=== PATIENT | female | born 1950 | race Caucasian/White ===

== ENCOUNTER 2019-12-13 09:55 | Day surgery (SDC) | payer MEDICARE, OTHER, SELFPAY ==
[2019-12-12 17:17] VITALS: BMI 22.8
[2019-12-13] VITALS (8 sets, daily range): BP systolic 110–137; BP diastolic 64–78; PULSE 81–84; RESP 12–25; TEMP 36.6–37.1; O2SAT 95–100
--- NOTE | 2019-12-13 | SCC_ITS ---
Procedure Done: Open reduction internal fixation right comminuted intra- articular distal radius fracture 144.9 seconds of fluoroscopic guidance, for a cumulative dose of 7.32 mGy, was provided to Dr. Taylor by the radiology department. C-arm images of the LEFT wrist were saved for the patient's permanent record. [facility]
--- NOTE | 2019-12-13 | XR_ITS ---
WS: [id number] INTRAOPERATIVE TECHNIQUE: 5 Spot fluoroscopic images for intraoperative purposes. FLUOROSCOPY TIME: 144.9 seconds CLINICAL INFORMATION: OR PICS COMPARISON: December 12, 2019 FINDINGS: Intraoperative changes plate and screw fixation distal radius. Hardware appears in good position. Uln a styloid avulsion. Soft tissue edema. XR/XR wrist LT 2V 46880 IMPRESSION: Images obtained for intraoperative purposes.
--- NOTE | 2019-12-13 10:47 | ANES.PREANE2 ---
Pre-Anesthetic Assessment Pre-Anesthetic Assessment: Height/Weight: Height 1.57 m Weight 56.699 kg Temp Pulse Resp BP Pulse Ox 98.7 F 81 18 124/64 98 12/13/19 10:37 12/13/19 10:37 12/13/19 10:37 12/13/19 10:37 12/13/19 10:37 Preop Diagnosis: Left distal radius fracture Proposed Procedure: Operation Date: 12/13/19 12:05 Proposed Procedures p ORIF Wrist/Distal Radius Fracture 84704 S52.502A(Left) - Stephani Taylor MD Familial anesthetic complications: None Was Beta Pita taken within 24 hours: N/A Last intake: Intake Last Liquid Date 12/12/19 Last Liquid Time 20:45 Last Solid Date 12/12/19 Last Solid Time 16:00 Social: Social History: No alcohol and No tobacco Exam: Pre-Anes Outpt Exam: alert, oriented x 3, clear to auscultation bilaterally and regular rate & rhythm Airway: Cervical ROM: WNL MP: 1 Dentition: Chipped Additional comments: missing (poor dentition) Pulmonary: Pulmonary: None reported 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
[2019-12-13 10:48] LABS: Add Urine Microscopic? NO
[2019-12-13] MEDS: sodium chloride 0.9% 1,000 ML 30 ML IV (10:53)
[2019-12-13] MEDS: midazolam 1 mg/mL INJ 2 mL 2 MG IVP (11:07)
--- NOTE | 2019-12-13 11:07 | ANES.PROC ---
Anesthesia Procedures Procedure/Date: 12/13/19 Nerve Block ^: Nerve Block 1: Main Anesthesia: general anesthesia Time Out Performed: Yes Consent: requested by attending/covering physician, from patient, risks and benefits reviewed and patient agrees to proceed Nerve block location: axillary (w/ musculocutaneous block) Anesthesia monitors applied: pulse oximetry, BP cuff and oxygen Nerve block position: supine Anesthetic Used: ropivicaine 0.5% and with decadron (4 mg) Amount of anesthesia used (mL): 30 Ultrasound used to: recognize landmarks and visualize and ID brachial plexus Interscalene/Femoral BLK: 2 stimuplex 22 g needle used for position and inplane approach Injection: neg aspiration of heme and paresthesia +/- Patient Tolerated Procedure: well and no complications Complications: none
[2019-12-13 11:11] LABS: Basophils % 0.4 %; Eosinophils # 0.1 10^3/uL (0.0-0.8); Eosinophils % 0.9 %; Hematocrit 35.4 % (37.0-47.0); Hemoglobin 11.7 g/dL (11.5-15.3); Lymphocytes # 0.9 10^3/uL (0.8-4.8); Lymphocytes % 11.5 %; Mean Corpuscular HGB Conc 33.1 g/dL (30.0-36.0); Mean Corpuscular Hemoglobin 30.5 pg (28.0-34.0); Mean Corpuscular Volume 92.2 fL (81-99); Mean Platelet Volume 10.6 fL (7.4-10.4); Monocytes # 0.6 10^3/uL (0.2-0.9); Monocytes % 6.7 %; Neutrophils # 6.6 10^3/uL (1.8-7.7); Neutrophils % 80.3 %; Nucleated Red Blood Cells % 0 %; Platelet Count 182 10^3/cmm (130-400); Red Blood Count 3.84 10^6/uL (4.1-5.3); Red Cell Distribution Width 15.5 % (12.1-15.1); White Blood Count 8.2 10^3/uL (4.0-10.0)
[2019-12-13 11:13] LABS: Bilirubin Urine Neg (NEGATIVE); Blood Urine Neg (Negative); Glucose Urine UA Norm (Normal); Ketones Urine Negative (Negative); Leukocyte Esterase Urine Negative (Negative); Nitrate Urine Negative (Negative); Protein Urine Neg (Negative); Specific Gravity, Urine 1.025 (1.005-1.030); Urine Appearance Clear (CLEAR); Urine Color Yellow (Yellow); Urobilinogen Urine Norm (Negative)
[2019-12-13 11:29] LABS: Alanine Aminotransferase 14 U/L (0-33); Albumin Level 4.8 g/dL (3.5-5.2); Alkaline Phosphatase 77 IU/L (35-105); Anion Gap 14.9 (5-19); Aspartate Amino Transferase 24 U/L (0-32); Blood Urea Nitrogen 12 mg/dL (8-23); Calcium 9.9 mg/dL (8.5-10.5); Carbon Dioxide 29 mmol/L (22-29); Chloride 101 mmol/L (98-107); Globulin 2.8 g/dL (1.3-4.6); Glucose 101 mg/dL (65-115); Osmolality Calculated 288 mOsm/kg (285-295); Potassium 3.9 mmol/L (3.5-5.1); Sodium 141 mmol/L (136-145); Total Protein 7.6 g/dL (6.6-8.7)
--- NOTE | 2019-12-13 12:49 | W.PM.OPSUD ---
Surgery/Procedure H&P Update DATE OF PROCEDURE: December 13, 2019 DATE H&P PERFORMED: 12/12/19 H&P UPDATE INFORMATION: I have reviewed H&P completed within last 30 days, No changes to prior documentation and H[place] [facility] [place] indicated PREOP DIAGNOSIS: Left distal radius fracture PLANNED PROCEDURE: Operation Date: 12/13/19 12:05 Proposed Procedures p ORIF Wrist/Distal Radius Fracture 76645 S52.502A(Left) - Stephani Taylor MD
[2019-12-13] MEDS: ceFAZolin 1,000 mg SDV 1000 MG IRRIGATION (13:39)
--- NOTE | 2019-12-13 14:33 | PM.OP ---
Operative Report Date of procedure: December 13, 2019 Pre-op Diagnosis: Left distal radius fracture Post-op diagnosis: same Post-op Findings: Extremely comminuted intra-articular distal radius fracture with very osteopenic bone Procedure Done: Open reduction internal fixation right comminuted intra-articular distal radius fracture with osteopenic bone utilizing the Falguni extra short narrow volar radius plate Specimens removed/disposition: None Surgeon: Stephani Taylor Retail Merchandising Manager: [facility] OR technicians Anesthesia: General (Intubated) Estimated blood loss (mL): 5 Tourniquet time (min): 60 (At 250 mmHg) IV fluids (mL): 1,000 Urine output (mL): 0 (No Márquez) Complications: None Findings: Severely comminuted distal radius fracture with very osteopenic bone and significant displacement. The fracture was also very unstable. Condition: stable Disposition: PACU (Then discharged to home with family) Brief History: This 69-year-old woman was in her usual state of health when she fell while weeding win. She fell onto her outstretched right upper extremity suffering the above injury. She was seen at [facility] emergency department. A closed reduction was accomplished, but the fracture was found at that time to be exceedingly unstable. She was seen in my office and scheduled for the above procedure today. Procedure: Patient was brought to the operating theater, and after undergoing adequate general anesthesia per endotracheal tube, with pre-op placement of a supraclavicular block, the patient's right upper extremity was prepped and draped in usual fashion utilizing DuraPrep. The patient had a tourniquet placed high on the arm prior to prepping and draping. Following prepping and draping, the arm was exsanguinated and the tourniquet was elevated. Total tourniquet time was 60 minutes at 250 mmHg. Prior to commencement of the surgical procedure, a surgical pause was performed. At the time of the surgical pause, we confirmed the site and side of surgery as well as the patient's identity and preoperative surgical markings. We also confirmed availability of equipment and appropriate preoperative IV antibiotics which was Anceg 2 g. Fluoroscopy was also brought into position so that we could visualize the fracture and hardware throughout the surgical procedure. The fracture was evaluated prior to tourniquet placement. The plate size was also chosen prior to incision utilizing fluoroscopy. Following elevation of the tourniquet as well as the surgical pause, an incision was made along the palmaris longus and continued down onto the volar surface of the radius. Care was taken to avoid injury throughout the surgical procedure to the median nerve as well as to the radial artery. The flexor carpi radialis was retracted medially. We were able to essentially elevate the sheath of the flexor carpi radialis and then I was able to place my finger directly onto the distal radius. For the most part, the patient did her own dissection at the time of his injury. Soft tissues were elevated off the distal radius to allow access to the fracture and also to the volar aspect of the distal radial shaft. Fluoroscopy was used to determine whether or not the reduction was appropriate. We were able to reduce the fracture with some difficulty due to the significant comminution and osteopenia. We then evaluated the plate and chose the Falguni extra narrow short volar plate for the right distal radius. The plate was attached proximally and distally utilizing primarily locking screws with one nonlocking screw. We had excellent fixation and reduction of the fracture. Fluoroscopy was utilized during the procedure. Once the plate was fully attached, we had a near anatomic position to the distal radius and the distal radius was out to length. Being satisfied with position, the area was copiously irrigated. There were no fascial tissues to close, and therefore we closed the subcutaneous tissues with 3-0 interrupted Monocryl. We then placed a subcuticular 4-0 Monocryl suture which was running. This was followed by Nina Gregorioi-Yovanny Fuller. A volar splint was wrapped into position over soft roll and this was wrapped in place with an Anthony wrap. The tourniquet was released after 60 minutes. There were no complications. There were no specimens. Patient was returned to recovery room in a satisfactory condition. She was subsequently discharged home with family. She will follow-up with me as scheduled in her discharge instructions.
--- NOTE | 2019-12-13 14:40 | SUR.PHASEI ---
1439 PATIENT TO PACU AT THIS TIME FROM OR. RR EVEN AND UNLABORED. PLACED ON SIMPLE MASK AT 8L, SPO2 100%. DRESSING INTACT TO LEFT WRIST WITH SLING IN PLACE. CAP REFILL INTACT.
--- NOTE | 2019-12-13 15:03 | SUR.PHASEI ---
1500 PATIENT TO OPS AT THIS TIME. NO DISTRESS. DENIES PAIN. SLING IN PLACE TO LEFT ARM WITH DRESSING CDI, CAP REFILL INTACT.
== END 2019-12-13 15:40 | disposition home or self-care (01) ==
PROVIDERS: Family Provider Emergency Medicine; PCP Student in an Organized Health Care Education/Training Program; Visit Provider Specialist
PROC: (CPT 25609; principal; 2019-12-13 11:45)
DX: S52.572A Other intraarticular fracture of lower end of left radius, initial encounter for closed fracture (principal); W18.30XA Fall on same level, unspecified, initial encounter; Y93.H2 Activity, gardening and landscaping; Y92.096 Garden or yard of other non-institutional residence as the place of occurrence of the external cause; Z87.891 Personal history of nicotine dependence
CPT/HCPCS: 25609; 12345; 73100; 76000; 80053; 81003; 85025; 96365; 96374; C1713; J0131; J0330; J0690; J1100; J2001; J2250; J2405; J2704; J2795; J3010; J3490; J7030

== ENCOUNTER → 2019-12-26 11:43 | Outpatient (BNVA) | payer MEDICARE, OTHER, SELFPAY | PROVIDERS: Family Provider Emergency Medicine; PCP Student in an Organized Health Care Education/Training Program; Visit Provider Specialist | DX: S52.502A Unspecified fracture of the lower end of left radius, initial encounter for closed fracture (principal); X58.XXXA Exposure to other specified factors, initial encounter; Z46.89 Encounter for fitting and adjustment of other specified devices | CPT/HCPCS: 73110; L3982 ==

== ENCOUNTER 2019-12-26 12:47 | Outpatient (CLI) | payer MEDICARE, OTHER, SELFPAY | END 2019-12-26 12:48 | disposition home or self-care (01) | LOC: SPT 12:48 | PROVIDERS: Family Provider Emergency Medicine; PCP Student in an Organized Health Care Education/Training Program; Visit Provider Specialist | DX: Z46.89 Encounter for fitting and adjustment of other specified devices (principal); S52.502D Unspecified fracture of the lower end of left radius, subsequent encounter for closed fracture with routine healing; X58.XXXD Exposure to other specified factors, subsequent encounter | CPT/HCPCS: L3982 ==

== ENCOUNTER → 2020-01-09 11:36 | Outpatient (BNVA) | payer MEDICARE, OTHER, SELFPAY | PROVIDERS: Family Provider Emergency Medicine; PCP Student in an Organized Health Care Education/Training Program; Visit Provider Specialist | DX: S52.502A Unspecified fracture of the lower end of left radius, initial encounter for closed fracture (principal); T14.8XXA Other injury of unspecified body region, initial encounter; S52.602A Unspecified fracture of lower end of left ulna, initial encounter for closed fracture | CPT/HCPCS: 73110 ==

== ENCOUNTER → 2020-02-06 13:24 | Outpatient (BNVA) | payer MEDICARE, OTHER, SELFPAY | PROVIDERS: Family Provider Emergency Medicine; PCP Student in an Organized Health Care Education/Training Program; Visit Provider Specialist | DX: S52.502A Unspecified fracture of the lower end of left radius, initial encounter for closed fracture (principal); S52.602A Unspecified fracture of lower end of left ulna, initial encounter for closed fracture; X58.XXXA Exposure to other specified factors, initial encounter | CPT/HCPCS: 73110 ==